=== PATIENT | female | born 1955 | race Caucasian/White ===

== ENCOUNTER 2023-04-09 11:53 | Emergency (ER) | payer MEDICARE, OTHER, SELFPAY ==
[2023-04-09] VITALS (9 sets, daily range): BP systolic 150–167; BP diastolic 79–96; BMI 23.3
[2023-04-09] MEDS: ZOFRAN 4 MG IV (12:24)
[2023-04-09 12:28] LABS: % Basophils 0.1 % (0-2); % Eosinophils 1.1 % (0-6); % Immature Granulocytes 2.1 % (0-0.5); % Lymphocytes 36.9 % (20.5-51.1); % Monocytes 7.3 % (1.7-9.3); % Neutrophils 52.5 % (42.2-75.2); Absolute Eosinophils 0.1 10^3/uL (0-0.7); Absolute Immature Granulocytes 0.2 10^3/uL (0-0.05); Absolute Monocytes 0.6 10^3/uL (0.1-0.6); Absolute Neutrophils 4.2 10^3/uL (1.4-6.5); Hematocrit 39.6 % (37.0-47.0); Hemoglobin 13.6 g/dL (12.0-16.0); Mean Corp Hgb Conc. 34.3 g/dL (33.0-37.0); Mean Corpuscular Hgb 34.6 pg (27.0-31.0); Mean Corpuscular Volume 100.8 fL (81.0-99.0); Mean Platelet Volume 9.1 fL (7.4-10.4); Nucleated Red Blood Cells % 0 %; Platelet Count 241 10^3/uL (130-400); Red Blood Cell Count 3.93 10^6/uL (4.20-5.40); Red Cell Dist. Width 12.8 % (11.5-14.5)
[2023-04-09 12:41] LABS: INR 0.91; PT 12.4 Sec (11.4-14.6)
--- NOTE | 2023-04-09 12:41 | ED.GENMED ---
History of Present Illness
General
Chief Complaint: Chest Pain
Source: patient and family
Exam Limitations: none
Time Seen by Provider: 04/09/23 12:41
Travel History
Have you had any contact with someone who has COVID-19?: No
Do you have any symptoms of coronavirus? Fever > 100 degrees, chills, cough, shortness of breath, sore throat, loss of taste or smell, muscle aches, or headache?: No
History of Present Illness
History of Present Illness:
67-year-old female sudden onset of upper middle chest pain associated with nausea diaphoresis and eventually a very brief syncopal episode. Chest discomfort lasted few minutes. No radiation to the back. No arm radiation. No shortness of breath.
Currently only complaining of some mild nausea. Has been having ongoing headaches for a week or so. Mostly left temporal area. Had a labs and a ESR that apparently were normal although was placed on a steroid taper anyway. She is currently on
her last dose of prednisone. Headache is mild and not associated with any neurologic symptoms it is not the reason she presented to the ER primarily.
Past History
Past History
ED Past Medical History: None; Negative Asthma, GERD, HTN, Hypercholesterolemia, NIDDM or Hypothyroidism
ED Past Surgical History: Other (Right knee arthroscopic surgery. Parotid gland surgery)
Social History
Tobacco: Non-smoker
Personal:
Living: with family
Review of Systems
Review of Systems
All Other Systems: Not applicable
Constitutional: Denies fever
Respiratory: Reports no symptoms
ABD/GI: Denies abdominal pain
Phy Exam
Physical Exam
Physical Exam:
GENERAL: Alert and oriented in no apparent distress
EYE: Orbits normal.
NECK: Supple, nontender
ENT: No temporal tenderness
CARDIAC: Regular rate and rhythm without any obvious murmurs.
LUNGS: Clear breath sounds,normal
ABDOMEN: Soft, without focal tenderness or distention
NEUROLOGICAL: Alert and oriented , grossly non-focal
SKIN: Warm and dry, no rash or lesion, no discoloration, skin intact.
MUSCULOSKELETAL: No edema,no deformity.Good color
PSYCH: Normal and appropriate interaction.
Scores
Heart Score for Chest Pain Patients
STEMI patient?: No
History: Slightly or Non-Suspicious
ECG: Normal
Age: >/= 65 years
Risk Factors: No Risk Factors
Troponin: </= Normal Limit
Heart Score for Chest Pain Patients: 2
Heart Score Risk: 2.5% MACE over next 6 weeks
Course
Orders/Labs/Results
Orders:
Orders
04/09/23 11:54
ECG [Electrocardiogram (*1)] Urgent
Reason for Study: Chest Pain
EKG- Treatment ONCE
04/09/23 12:12
Cardiac Monitoring- Treatment ONCE
IV Insert/Care/Rem.- Treatment PRN
Ondansetron Injectable [Zofran] 4 mg .ROUTE .STK-MED ONE
O2 Therapy [RESP] Urgent
Titrate/Wean O2 to maintain O2 sat greater than (%): 90
Special Instructions: Maintain sats >/=90%
04/09/23 12:14
Complete Blood Count/With Diff Urgent
Comprehensive Metabolic Panel Urgent
Lipase Urgent
Comment: ADD ON
Prothrombin Time Urgent
Troponin I Urgent
04/09/23 12:22
Ondansetron Injectable [Zofran] 4 mg IV NOW STA
04/09/23 12:53
Add On- LAB Urgent
Tests Added?: lipase
04/09/23 12:54
CT Chest Pe Study Urgent
Comment:
Reason For Exam: chest pain
CT Head W/o Iv Contrast Urgent
Comment:
Reason For Exam: garcia
IV Insert/Care/Rem.- Treatment PRN
0.9% Sodium Chloride 500 ml [Nss] 500 ml IV BOLUS
04/09/23 12:55
US Abdomen Complete/Upper Urgent
Comment:
Reason For Exam: Upper abdominal/chest pain
04/09/23 14:58
Electrocardiogram (*1) Stat
Reason for Study: Other
Other Reason for Exam: chest pain
EKG- Treatment ONCE
04/09/23 16:11
Troponin I Urgent
04/09/23 17:54
Potassium Chloride 10% Elixir [KCl Elixir] 40 meq PO NOW STA
Abnormal Lab Results
04/09/23
12:14
RBC 3.93 L 10^6/uL
(4.20-5.40)
MCV 100.8 H fL
(81.0-99.0)
MCH 34.6 H pg
(27.0-31.0)
Abs Immat Gran (auto) 0.2 H 10^3/uL
(0-0.05)
Immature Gran % 2.1 H %
(0-0.5)
Potassium 3.3 L mmol/L
(3.5-5.1)
Glucose 111 H mg/dl
(70-99)
Total Protein 5.8 L g/dl
(6.3-8.2)
04/09/23 12:14
04/09/23 12:14
Vital Signs
Initial and Last Documented VS:
Initial Vital Signs
BP
167/96
04/09/23 12:02
Last Documented Vital Signs
Temp Pulse Resp BP Pulse Ox
98.0 F 88 18 153/79 98
04/09/23 12:15 04/09/23 18:39 04/09/23 18:39 04/09/23 18:39 04/09/23 18:39
MDM/Problems Addressed
Differential Diagnosis Includes:
Large differential for chest pain nausea vasovagal like syncope. Doubt a primary cardiac issue as this was nonexertional, patient walks regularly without issues no cardiac risk factors. Symptoms seem to radiate down to her upper abdomen. In
addition she is having these ongoing headaches that I feel are unlikely to be directly associated although the prednisone may be causing her GI upset. Workup in progress to evaluate for cardiac, PE, gallbladder, headache workup all pending
*EKG
Interpreted by ED Provider?: Yes
Interpretation: normal
Comparison EKG: no changes
Heart Rate: 65
Rate: normal
Rhythm: sinus and sinus arrhythmia
Payne: normal axis
Interval: normal interval
QRS Pattern: normal QRS
Ischemia: no ischemia
*Critical Care Note
Total Time (30-74mins, 75-104mins- exclusive of procedures): Not Applicable
Update Note
Update Note:
Patient has remained medically stable throughout her ER stay. She feels well. Syncope described was very vasovagal like. Has not had chest pain throughout her ER stay with 2 negative troponins and a stable EKGs. In addition patient has no
cardiac risk factors exercises regularly without difficulties.
ED Attending Note
-
Portions of this chart may have been created with voice recognition software.� Occasional wrong word or��sound alike� substitutions may have occurred due to the inherent limitations of voice recognition software.
Discharge Plan
Departure
Patient Disposition: Home (Routine Discharge)
Date of Disposition: 04/09/23
Time of Disposition: 18:02
Patient with high blood pressure during this ER visit?: Yes
Discharge Problem:
Nausea/transient chest pain, Syncope, Mild hypokalemia, Incidental renal/hepatic cysts, Recurring headaches
Instructions: Hypokalemia (DC), Headache, Adult (DC), Chest Pain DCA Follow Up, BLOOD PRESSURE
Prescriptions:
No Action
prednisone 20 mg Tablet
20 mg PO .TAPER
Patient Comments:
04/09/2023, pt. took last dose of this med. today.
Theragen Tablet
1 tab PO DAILY
acetaminophen [Tylenol Extra Strength] 500 mg Tablet
1,000 mg PO BIDPRN PRN (Reason: mild pain)
ibuprofen [Advil] 200 mg Tablet
400 mg PO BIDPRN PRN (Reason: mild pain)
Referrals:
Mat Parham MD [Family Provider] - Follow up in 2-3 days
Interventions
Interventions:
*Risk Screen - Suicide Last Done: 04/09/23 12:19
*General Assessment Last Done: 04/09/23 12:15
*Neglect/Abuse Screening Last Done: 04/09/23 12:19
ED- Fall Risk Assessment Last Done: 04/09/23 12:15
*ED COVID-19 Vaccine History Last Done: 04/09/23 12:19
*Nursing Disposition Last Done: 04/09/23 18:39
ED- Cardiac Assessment Last Done: 04/09/23 12:19
Discharge Date and Time
Discharge Date/Time: 04/09/23 18:40
[2023-04-09 12:48] LABS: ALT (SGPT) 19 U/L (0-35); AST (SGOT) 23 U/L (14-36); Albumin 3.6 g/dl (3.5-5.0); Alkaline Phosphatase 50 U/L (38-126); Blood Urea Nitrogen 17 mg/dl (7-17); Carbon Dioxide 24 mmol/L (22-30); Chloride 100 mmol/L (98-107); Estimated Creatinine Clearance 79 ml/min; Glucose 111 mg/dl (70-99); Sodium 135 mmol/L (135-145); Total Bilirubin 0.8 mg/dl (0.2-1.3); Total Protein 5.8 g/dl (6.3-8.2); eGFR > 60.00
[2023-04-09 12:59] LABS: Potassium 3.3 mmol/L (3.5-5.1)
[2023-04-09 13:07] LABS: Troponin I < 0.012 ng/ml
[2023-04-09 13:24] LABS: Lipase 108 U/L (23-300)
[2023-04-09] MEDS: NSS 500 IV (13:51)
[2023-04-09 16:45] LABS: Troponin I < 0.012 ng/ml
[2023-04-09] MEDS: KCL ELIXIR 40 MEQ PO (18:04)
== END 2023-04-09 18:40 | disposition home or self-care (01) ==
LOC: EMR 11:53
PROVIDERS: Student in an Organized Health Care Education/Training Program; EMERGENCY PHYSICIAN Emergency Medicine; FAMILY PHYSICIAN Family Medicine
DX: R11.0 Nausea (principal); R55 Syncope and collapse; E87.6 Hypokalemia; R07.89 Other chest pain; K76.89 Other specified diseases of liver; R51.9 Headache, unspecified
CPT/HCPCS: 99284; 96374; 96361; 70450; 71275; 76700; 80053; 83690; 84484; 85025; 85610; 93005; Q9967

== ENCOUNTER → 2023-05-17 09:13 | Outpatient (REF) | payer MEDICARE, OTHER, SELFPAY | LOC: DHCBS MAIN 09:13 | PROVIDERS: ATTENDING PHYSICIAN Internal Medicine Cardiovascular Disease; FAMILY PHYSICIAN Student in an Organized Health Care Education/Training Program | DX: R07.9 Chest pain, unspecified (principal) | CPT/HCPCS: 93306 ==

== ENCOUNTER → 2023-05-31 09:36 | Outpatient (REF) | payer MEDICARE, OTHER, SELFPAY | LOC: RCS 09:36 | PROVIDERS: ATTENDING PHYSICIAN Internal Medicine Cardiovascular Disease; FAMILY PHYSICIAN Family Medicine | DX: R07.9 Chest pain, unspecified (principal) | CPT/HCPCS: 93017; 93350 ==

== ENCOUNTER → 2023-10-03 14:52 | Outpatient (REF) | payer MEDICARE, OTHER, SELFPAY | LOC: WDC 14:52 | PROVIDERS: ATTENDING PHYSICIAN Obstetrics & Gynecology Gynecology; FAMILY PHYSICIAN Family Medicine | DX: Z12.31 Encounter for screening mammogram for malignant neoplasm of breast (principal) | CPT/HCPCS: 77063; 77067 ==

== ENCOUNTER → 2024-03-09 07:16 | Outpatient (REF) | payer MEDICARE, OTHER, SELFPAY | LOC: MRI 07:16 | PROVIDERS: ATTENDING PHYSICIAN Family Medicine | DX: K11.8 Other diseases of salivary glands (principal); M54.2 Cervicalgia | CPT/HCPCS: 70543; 72141; A9575 ==

== ENCOUNTER → 2024-06-04 11:38 | Outpatient (REF) | payer MEDICARE, OTHER, SELFPAY | LOC: HWCARD 11:38 | PROVIDERS: ATTENDING PHYSICIAN Physical Medicine & Rehabilitation; FAMILY PHYSICIAN Family Medicine | DX: Z01.818 Encounter for other preprocedural examination (principal) | CPT/HCPCS: 93005 ==

== ENCOUNTER → 2024-07-01 08:39 | Outpatient (REF) | payer MEDICARE, OTHER, SELFPAY | LOC: HWRAD 08:39 | PROVIDERS: ATTENDING PHYSICIAN Family Medicine | DX: Z78.0 Asymptomatic menopausal state (principal) | CPT/HCPCS: 77080 ==

== ENCOUNTER 2024-09-02 10:06 | Outpatient (RCR) | payer MEDICARE, OTHER, SELFPAY | END 2024-09-02 23:59 | disposition home or self-care (01) | LOC: RPT 10:06 | PROVIDERS: ATTENDING PHYSICIAN Physician Assistant; FAMILY PHYSICIAN Family Medicine | DX: M47.812 Spondylosis without myelopathy or radiculopathy, cervical region (principal); M54.12 Radiculopathy, cervical region; M50.30 Other cervical disc degeneration, unspecified cervical region | CPT/HCPCS: 97010; 97110; 97140; 97162 ==

== ENCOUNTER → 2024-10-06 11:22 | Outpatient (REF) | payer MEDICARE, OTHER, SELFPAY | LOC: WDC 11:22 | PROVIDERS: ATTENDING PHYSICIAN Family Medicine | DX: Z12.31 Encounter for screening mammogram for malignant neoplasm of breast (principal) | CPT/HCPCS: 77063; 77067 ==

== ENCOUNTER 2024-10-07 08:57 | Outpatient (RCR) | payer MEDICARE, OTHER, SELFPAY | END 2024-10-08 09:30 | disposition home or self-care (01) | LOC: RPT 08:57 | PROVIDERS: ATTENDING PHYSICIAN Physician Assistant; FAMILY PHYSICIAN Family Medicine | DX: M47.812 Spondylosis without myelopathy or radiculopathy, cervical region (principal); M54.12 Radiculopathy, cervical region; M50.30 Other cervical disc degeneration, unspecified cervical region | CPT/HCPCS: 97010; 97110; 97140 ==

== ENCOUNTER → 2024-10-13 09:19 | Outpatient (REF) | payer MEDICARE, OTHER, SELFPAY | LOC: WDC 09:19 | PROVIDERS: ATTENDING PHYSICIAN Family Medicine | DX: R92.8 Other abnormal and inconclusive findings on diagnostic imaging of breast (principal) | CPT/HCPCS: 76642 ==